=== PATIENT | female | born 1935 | race Hispanic/Latino ===

== ENCOUNTER 2017-08-09 14:57 | Outpatient (CLI) | payer MEDICARE ==
--- NOTE | 2017-08-09 15:30 | XRay Report ---
ROUTINE CHEST, TWO VIEWS: HISTORY: Cough. The trachea, heart, mediastinal contour, lung srivastava and bony thorax are unremarkable. IMPRESSION: Unremarkable chest x-ray.
== END 2017-08-09 14:58 | disposition home or self-care (01) ==
LOC: SPVIMAG 14:57
PROVIDERS: ATTEND Internal Medicine
DX: R05 Cough (principal)
CPT/HCPCS: 71046

== ENCOUNTER 2020-12-24 16:13 | Observation (INO) | payer MEDICARE ==
[2020-12-24] MEDS ORDERED: dilTIAZem 25 MG/5 ML INJ ONE (16:47)
[2020-12-24] MEDS ORDERED: ASPIRIN 325 MG TAB PO ONE (16:53)
[2020-12-24] MEDS ORDERED: dilTIAZem 25 MG/5 ML INJ IV ONE (16:56)
[2020-12-24] MEDS ORDERED: SODIUM CHLORIDE 0.9% 500 ML 500 ML IV ONE (16:59)
--- NOTE | 2020-12-24 16:59 | Emergency Department Report ---
ED Chest Pain HPI - General Chief Complaint: Chest Pain Stated Complaint: SYNCOPY/FALL PUI?: No Time Seen by Provider: 12/24/20 16:25 Source: patient, EMS Mode of arrival: Stretcher Limitations: No Limitations - History of Present Illness Initial Comments: Patient is an 85-year-old female that presents emergency room with complaints of chest pain, weakness and near syncope. Patient states she was at [facility] walking around feeling so weak that she needs to sit on the floor. Patient states that [facility] then called EMS. Patient states she never lost consciousness. Patient states she was close. Patient states that she had chest pain prior to the event but the chest pain has resolved. Patient states her chest pain was a 6 out of 10. Patient states she is not having any at this time. Patient denies shortness of breath. Patient states she has a history of A. fib. Patient patient brought into the ER by EMS. Report received from EMS. No medications were given in route. Patient was placed on oxygen. Patient is on 2 L of oxygen at this time. Patient denies recent travel. Patient denies recent international travel. Patient denies exposure to the novel coronavirus. Patient denies sick contacts. Patient denies fever and chills. Patient denies cough. Patient denies diarrhea. Patient denies coming in contact with anybody with symptoms of the novel coronavirus. MD Complaint: chest pain -: Sudden Onset: during exertion Pain Location: substernal, left chest Pain Radiation: none Severity scale (0 -10): 0 Consistency: now resolved Improves With: rest Worsens With: exertion re: denies: nausea, vomting, diaphoresis, dyspnea, sense of impending doom Other Symptoms: denies: cough, fever, syncope, rash, acid taste in mouth, leg swelling, palpitations, burping Aspirin use within the Past 7 Days: (1) Yes - Related Data On Oral Contraceptives: No Home Medications Medication Instructions Recorded Confirmed Last Taken RX: Calcium Carb & Citrate/Vit D3 600 mg PO DAILY 07/15/14 07/16/14 Unknown [Calcium + Vitamin D3 Caplet] RX: Cholecalciferol (Vitamin D3) 2,000 unit PO DAILY 07/15/14 07/16/14 Unknown [Vitamin D] RX: Fenofibrate [Lofibra] 160 mg PO QDAY 07/15/14 07/15/14 Unknown RX: Metoprolol [Lopressor TAB] 50 mg PO BID 07/15/14 07/15/14 Unknown RX: Rivaroxaban [Xarelto] 20 mg PO QDAY 07/15/14 07/15/14 Unknown RX: Simvastatin (Nf) [Zocor TAB] 20 mg PO QHS 07/15/14 07/15/14 Unknown RX: Turmeric Root Extract 500 mg PO DAILY 07/15/14 07/16/14 Unknown [Turmeric] RX: Vits A,C,E/Lutein/Minerals 1 each PO DAILY 07/15/14 07/16/14 Unknown [Ocuvite with Lutein Tablet] RX: diazePAM [Diazepam] 2.5 mg PO HS 07/15/14 07/15/14 Unknown RX: Tramadol HCl [traMADol] 50 mg PO Q8HR 07/16/14 07/16/14 Unknown Allergies Allergy/AdvReac Type Severity Reaction Status Date / Time Sulfa (Sulfonamide Allergy Itching Verified 07/15/14 15:43 Antibiotics) Heart Score - HEART Score History: Slightly suspicious EKG: Normal Age: > 65 Risk factors: > 3 risk factors or hx of atherosclerotic disease Troponin: < normal limit HEART Score: 4 - EKG Read Time Time EKG Completed: 17:44 EKG Read Time: 17:46 ED Review of Systems ROS: Stated complaint: SYNCOPY/FALL Other details as noted in HPI Constitutional: weakness. denies: chills, fever Eyes: denies: eye pain, eye discharge, vision change ENT: denies: ear pain, throat pain Respiratory: denies: cough, shortness of breath, wheezing Cardiovascular: denies: chest pain, palpitations Endocrine: no symptoms reported Gastrointestinal: denies: abdominal pain, nausea, diarrhea Genitourinary: denies: urgency, dysuria, discharge Musculoskeletal: denies: back pain, joint swelling, arthralgia Skin: denies: rash, lesions Neurological: as per HPI, weakness. denies: headache, paresthesias Psychiatric: denies: anxiety, depression Hematological/Lymphatic: denies: easy bleeding, easy bruising ED Past Medical Hx - Past Medical History Previous Medical History?: Yes Hx Hypertension: Yes Hx Heart Attack/AMI: Yes Hx Arthritis: Yes (on shoulder) Hx Psychiatric Treatment: (anxiety, insomnia) Hx HIV: No Additional medical history: high cholesterol, a fib - Surgical History Past Surgical History?: Yes Hx Appendectomy: Yes Additional Surgical History: colon resection, bladder tact - Family History Family history: no significant - Social History Smoking Status: Never Smoker Substance Use Type: None - Medications Home Medications: Home Medications Medication Instructions Recorded Confirmed Last Taken Type RX: Calcium Carb & Citrate/Vit D3 600 mg PO DAILY 07/15/14 07/16/14 Unknown History [Calcium + Vitamin D3 Caplet] RX: Cholecalciferol (Vitamin D3) 2,000 unit PO DAILY 07/15/14 07/16/14 Unknown History [Vitamin D] RX: Fenofibrate [Lofibra] 160 mg PO QDAY 07/15/14 07/15/14 Unknown History RX: Metoprolol [Lopressor TAB] 50 mg PO BID 07/15/14 07/15/14 Unknown History RX: Rivaroxaban [Xarelto] 20 mg PO QDAY 07/15/14 07/15/14 Unknown History RX: Simvastatin (Nf) [Zocor TAB] 20 mg PO QHS 07/15/14 07/15/14 Unknown History RX: Turmeric Root Extract 500 mg PO DAILY 07/15/14 07/16/14 Unknown History [Turmeric] RX: Vits A,C,E/Lutein/Minerals 1 each PO DAILY 07/15/14 07/16/14 Unknown History [Ocuvite with Lutein Tablet] RX: diazePAM [Diazepam] 2.5 mg PO HS 07/15/14 07/15/14 Unknown History RX: Tramadol HCl [traMADol] 50 mg PO Q8HR 07/16/14 07/16/14 Unknown History ED Physical Exam - General Limitations: No Limitations General appearance: alert, in no apparent distress - Head Head exam: Present: atraumatic, normocephalic - Eye Eye exam: Present: normal appearance - ENT ENT exam: Present: mucous membranes moist - Neck Neck exam: Present: normal inspection - Respiratory Respiratory exam: Present: normal lung sounds bilaterally. Absent: respiratory distress - Cardiovascular Cardiovascular Exam: Present: regular rate, normal rhythm, tachycardia, normal heart sounds. Absent: systolic murmur, diastolic murmur, rubs, gallop - GI/Abdominal GI/Abdominal exam: Present: soft, normal bowel sounds - Extremities Exam Extremities exam: Present: normal inspection - Back Exam Back exam: Present: normal inspection - Neurological Exam Neurological exam: Present: alert, oriented X3 - Psychiatric Psychiatric exam: Present: normal affect, normal mood - Skin Skin exam: Present: warm, dry, intact, normal color. Absent: rash ED Course Vital Signs 12/24/20 12/24/20 12/24/20 17:00 17:22 18:13 Temperature 100.8 F H Pulse Rate 140 H 124 H 100 H Respiratory 16 16 Rate Blood Pressure 114/68 118/72 Blood Pressure 118/68 106/64 [Left] O2 Sat by Pulse 98 98 Oximetry 12/24/20 12/24/20 12/24/20 18:16 18:30 18:46 Temperature Pulse Rate 107 H 101 H 100 H Respiratory 25 H 27 H 25 H Rate Blood Pressure 106/65 104/59 104/59 Blood Pressure [Left] O2 Sat by Pulse 96 96 95 Oximetry 12/24/20 12/24/20 12/24/20 19:00 19:16 19:30 Temperature Pulse Rate 113 H 107 H 104 H Respiratory 18 22 16 Rate Blood Pressure 97/50 97/50 105/59 Blood Pressure [Left] O2 Sat by Pulse 96 95 96 Oximetry 12/24/20 12/24/20 19:46 20:00 Temperature Pulse Rate 107 H 104 H Respiratory 21 19 Rate Blood Pressure 105/59 101/64 Blood Pressure [Left] O2 Sat by Pulse 94 95 Oximetry - Reevaluation(s) Reevaluation #1: Patient heart rate is improved. Patient is status post Cardizem 20 mg IV. Patient was placed on a Cardizem drip. We will continue to monitor blood pressure and vital signs. Patient will be given a 500 cc bolus of fluids. 12/24/20 16:46 0 Reevaluation #2: Patient states she is feeling better. Patient states that she does not feel weak anymore. Patient denies chest pain. Patient denies shortness of breath. Patient's heart rate is better. 12/24/20 17:04 Reevaluation #3: Patient states she is feeling fine. Vital signs are stable. 12/24/20 17:35 Reevaluation #4: I discussed all results with patient. I discussed plan of care with patient. Patient agrees with plan of care and admission. Patient to be admitted to the hospitalist service. 12/24/20 18:26 - Consultations Consultation #1: Hospitalist consulted for admission. Hospitalist to admit patient. 12/24/20 18:27 DAKOTAH score - Dakotah Score Age > 65: (1) Yes Aspirin use within the Past 7 Days: (1) Yes 3 or more CAD Risk Factors: (1) Yes 2 or more Angina events in past 24 hrs: (0) No Known CAD with more than 50% Stenosis: (0) No Elevated Cardiac Markers: (0) No ST Deviation Greater than 0.5mm: (0) No DAKOTAH Score: 3 ED Medical Decision Making - Lab Data Result diagrams: 12/24/20 17:09 12/24/20 17:09 - EKG Data -: EKG Interpreted by Me EKG shows normal: axis, intervals, QRS complexes, ST-T waves Rate: normal - EKG Data Interpretation: other (A. fib) - Radiology Data Radiology results: report reviewed, image reviewed interpreted by me: Chest x-ray: No pneumonia, no pneumothorax, no foreign body, no osseous findings, no acute findings CT head/brain wo con INDICATION / CLINICAL INFORMATION: 85 years Female; near syncope. weakness. TECHNIQUE: Routine CT head without contrast. All CT scans at this location are performed using CT dose reduction for ALARA by means of automated exposure control. COMPARISON: No priors currently available FINDINGS: BRAIN / INTRACRANIAL CONTENTS: No acute hemorrhage, mass effect, midline shift, hydrocephalus, or acute, large territorial infarct. Mild, diffuse cerebral and cerebellar atrophy. There are mild areas of decreased attenuation in the white matter of the cerebral hemispheres. These are nonspecific findings and may be related to microangiopathy (hypertension, diabetes, atherosclerosis), given the patient's age. CRANIOCERVICAL JUNCTION: No significant abnormality. ORBITS: No significant abnormality of visualized orbits. SINUSES / MASTOIDS: Prior sinus surgery and/or nasal septal perforation noted. Mild to moderate mucosal thickening in the ethmoids. There is also mild to moderate opacification of the mastoids on the right. ADDITIONAL FINDINGS: Atherosclerotic disease is seen in the anterior circulation. IMPRESSION: 1. No focal mass, hemorrhage, hydrocephalus, or acute, large territorial infarct. CHEST 1 VIEW 12/24/2020 5:38 PM INDICATION / CLINICAL INFORMATION: syncope. COMPARISON: 08/09/2017 FINDINGS: SUPPORT DEVICES: None. HEART / MEDIASTINUM: Small calcified lymph nodes in the left perihilar region. Mild aortic arch calcific atherosclerosis. No significant abnormality of the cardiac silhouette. LUNGS / PLEURA: No significant pulmonary or pleural abnormality. No pneumothorax. ADDITIONAL FINDINGS: Moderate bilateral shoulder degenerative changes. IMPRESSION: 1. No acute findings. - Medical Decision Making Patient is an 85-year-old female who presents emergency room with complaints of weakness and near syncope and chest pain. Patient never lost consciousness. Patient denied have any trauma and the patient states she felt weak and sat on the floor at [facility]. Patient brought in by EMS. Patient was found to be A. fib RVR no meds were given by EMS. Immediately after initial valuation, the patient was given 20 mg of IV Cardizem and the patient's heart rate improved. Patient was then placed on a Cardizem drip and patient's heart rate stabilized. Patient had an EKG done EKG shows no ST changes in A. fib. Patient's rate was controlled with Cardizem. Patient had labs done which were essentially unremarkable and patient's troponin was negative. Patient chest x-ray was negative for acute finding. I personally reviewed the EKG and the chest x-ray. Patient had a head CT to rule out intracranial process due to complaints of near syncope and the head CT was negative for acute findings. Critical care time documented due to the multiple reassessments, prolonged time at the bedside, interpretation of diagnostics and labs. - Differential Diagnosis A. fib RVR, near syncope, weakness,, fall, chest pain Critical Care Time: Yes Critical care time in (mins) excluding proc time.: 35 Critical care attestation.: If time is entered above; I have spent that time in minutes in the direct care of this critically ill patient, excluding procedure time. Critical Care Time: 35 minutes ED Disposition Clinical Impression: Atrial fibrillation with rapid ventricular response, Weakness, Near syncope Fall Qualifiers: Encounter type: initial encounter Qualified Code(s): W19.XXXA - Unspecified fall, initial encounter Chest pain Qualifiers: Chest pain type: unspecified Qualified Code(s): R07.9 - Chest pain, unspecified Disposition: 09 OP ADMIT IP TO THIS HOSP Is pt being admited?: Yes Does the pt Need Aspirin: No Condition: Critical Time of Disposition: 18:29
[2020-12-24] MEDS ORDERED: dilTIAZem/D5W 100 MG/100 ML BAG IV SCH (17:00)
[2020-12-24 17:20] LABS: Basophils % (Auto) 0.4 % (0.0-1.8); Eosinophils % (Auto) 0.6 % (0.0-4.3); Hematocrit 45.8 % (30.3-42.9); Hemoglobin 15.3 gm/dl (10.1-14.3); Lymphocytes # (Auto) 1.5 K/mm3 (1.2-5.4); Lymphocytes % (Auto) 17.2 % (13.4-35.0); Mean Corpuscular HGB Conc 34 % (30-34); Mean Corpuscular Volume 97 fl (79-97); Monocytes # (Auto) 1.1 K/mm3 (0.0-0.8); Monocytes % (Auto) 12.3 % (0.0-7.3); Platelet Count 123 K/mm3 (140-440); Red Blood Count 4.73 M/mm3 (3.65-5.03)
[2020-12-24 17:55] LABS: Alanine Aminotransferase 12 units/L (7-56); Albumin 4.1 g/dL (3.9-5); BUN/Creatinine Ratio 19; Blood Urea Nitrogen 15 mg/dL (7-17); Calcium 9.1 mg/dL (8.4-10.2); Hemolysis Index 31
--- NOTE | 2020-12-24 17:55 | Cat Scan Report ---
CT head/brain wo con INDICATION / CLINICAL INFORMATION: 85 years Female; near syncope. weakness. TECHNIQUE: Routine CT head without contrast. All CT scans at this location are performed using CT dos e reduction for ALARA by means of automated exposure control. COMPARISON: No priors currently available FINDINGS: BRAIN / INTRACRANIAL CONTENTS: No acute hemorrhage, mass effect, midline shift, hydrocephalus, or acu te, large territorial infarct. Mild, diffuse cerebral and cerebellar atrophy. There are mild areas of decreased attenuation in the white matter of the cerebral hemispheres. These are nonspecific findings and may be related to microangiopathy (hypertension, diabetes, atheroscleros is), given the patient's age. CRANIOCERVICAL JUNCTION: No significant abnormality. ORBITS: No significant abnormality of visualized orbits. SINUSES / MASTOIDS: Prior sinus surgery and/or nasal septal perforation noted. Mild to moderate mucos al thickening in the ethmoids. There is also mild to moderate opacification of the mastoids on the ri ght. ADDITIONAL FINDINGS: Atherosclerotic disease is seen in the anterior circulation. IMPRESSION: 1. No focal mass, hemorrhage, hydrocephalus, or acute, large territorial infarct. Signer Name: Omar Henley MD, III Signed: 12/24/2020 5:51 PM Workstation Name: [id number]
--- NOTE | 2020-12-24 18:06 | XRay Report ---
CHEST 1 VIEW 12/24/2020 5:38 PM INDICATION / CLINICAL INFORMATION: syncope. COMPARISON: 08/09/2017 FINDINGS: SUPPORT DEVICES: None. HEART / MEDIASTINUM: Small calcified lymph nodes in the left perihilar region. Mild aortic arch calci fic atherosclerosis. No significant abnormality of the cardiac silhouette. LUNGS / PLEURA: No significant pulmonary or pleural abnormality. No pneumothorax. ADDITIONAL FINDINGS: Moderate bilateral shoulder degenerative changes. IMPRESSION: 1. No acute findings. Signer Name: Brady Harman MD Signed: 12/24/2020 6:01 PM Workstation Name: [id number]
--- NOTE | 2020-12-24 18:31 | History and Physical Report ---
History of Present Illness Chief complaint: I started feeling weak History of present illness: 85 YO Female with HTN, HLD, Obesity Hypoventilation Syndrome, [place], Atrial Fib on therapeutic anticoagulation with Xarelto, OA, DEBBY presents to ED for evaluation. Patient reports "I started feeling weak in [facility]". Patient states that she was in her usual state of health and went shopping with her grandson to [facility]. Patient states that while ambulating around the store she began feeling weak with a rapid heartbeat. Patient states that she sat on the floor with improvement in symptoms. EMS was notified and upon arrival the patient was found to be in distress and subsequently transported to [facility] for further care and evaluation of the aforementioned symptoms. The patient was seen and evaluated in the emergency department. All lab and imaging studies reviewed. Patient denies chest pain at the time my evaluation and analysis chest palpitations. Patient found to have a atrial fibrillation with rapid ventricular response. Patient treated with Cardizem loading dose and initiation of Cardizem drip with normalization of heart rate. Patient transition to oral Cardizem and placed in observation status and admitted to telemetry. Patient acknowledges chest palpitations. Patient denies fever, chills chest pain, productive cough, skin rash, recent ill contacts, or known exposure to COVID-19. No prior admission for review. All medication listed at time of admission has been reconciled. Advanced care planning conducted in ED. Cardiology team consulted in ED. Past History Past Medical History: acute [place], atrial fib, hypertension, other (See HPI) Past Surgical History: appendectomy, bowel surgery Social history: . denies: smoking, alcohol abuse, prescription drug abuse Family history: hypertension Medications and Allergies Allergies Allergy/AdvReac Type Severity Reaction Status Date / Time Sulfa (Sulfonamide Allergy Itching Verified 07/15/14 15:43 Antibiotics) Home Medications Medication Instructions Recorded Confirmed Last Taken Type Calcium Carb & Citrate/Vit D3 600 mg PO DAILY 07/15/14 07/16/14 Unknown History [Calcium + Vitamin D3 Caplet] Cholecalciferol (Vitamin D3) 2,000 unit PO DAILY 07/15/14 07/16/14 Unknown History [Vitamin D] Fenofibrate [Lofibra] 160 mg PO QDAY 07/15/14 07/15/14 Unknown History Metoprolol [Lopressor TAB] 50 mg PO BID 07/15/14 07/15/14 Unknown History Rivaroxaban [Xarelto] 20 mg PO QDAY 07/15/14 07/15/14 Unknown History Simvastatin (Nf) [Zocor TAB] 20 mg PO QHS 07/15/14 07/15/14 Unknown History Turmeric Root Extract [Turmeric] 500 mg PO DAILY 07/15/14 07/16/14 Unknown History Vits A,C,E/Lutein/Minerals 1 each PO DAILY 07/15/14 07/16/14 Unknown History [Ocuvite with Lutein Tablet] diazePAM [Diazepam] 2.5 mg PO HS 07/15/14 07/15/14 Unknown History Tramadol HCl [traMADol] 50 mg PO Q8HR 07/16/14 07/16/14 Unknown History Active Meds: Active Medications Diltiazem HCl (Cardizem/D5w 100mg/100ml) 100 mg in 100 mls @ 5 mls/hr IV TITR RAUDEL; Protocol Last Admin: 12/24/20 17:22 Dose: 5 mg/hr, 5 mls/hr Documented by: Review of Systems Constitutional: weakness, no weight loss, no weight gain, no fever, no chills Ears, nose, mouth and throat: no ear discharge, no decreased hearing, no nose pain, no nasal discharge, no sinus pressure Breasts: no change in shape, no mass Cardiovascular: palpitations, decreased exercise tolerance, no syncope, no lightheadedness, no shortness of breath Respiratory: no cough, no excessive sputum, no shortness of breath Gastrointestinal: no abdominal pain, no nausea, no vomiting, no diarrhea, no constipation, no change in bowel habits Genitourinary Female: no pelvic pain, no flank pain, no dysuria, no urinary frequency, no urgency Rectal: no pain, no incontinence, no bleeding Musculoskeletal: no neck stiffness, no neck pain, no shooting arm pain, no arm numbness/tingling, no low back pain, no shooting leg pain Integumentary: no rash, no pruritis, no redness, no sores, no wounds Neurological: no head injury, no transient paralysis, no paralysis, no weakness, no numbness, no tingling, no syncope Psychiatric: no anxiety, no sleep disturbances, no insomnia, no hypersomnia, no change in appetite, no suicidal ideation, no disorientation Endocrine: no cold intolerance, no heat intolerance, no polyphagia, no excessive thirst, no polyuria, no flushing Hematologic/Lymphatic: no easy bruising, no easy bleeding, no lymphadenopathy Allergic/Immunologic: no urticaria, no allergic rhinitis, no wheezing, no persistent infections, no anaphylaxis Exam - Constitutional Vitals: Temp Pulse Resp BP Pulse Ox 100.8 F H 100 H 16 106/64 98 12/24/20 18:13 12/24/20 18:13 12/24/20 18:13 12/24/20 18:13 12/24/20 18:13 General appearance: Present: mild distress - EENT Eyes: Present: PERRL ENT: hearing intact, clear oral mucosa - Neck Neck: Present: supple, normal ROM - Respiratory Respiratory effort: normal Respiratory: bilateral: CTA - Cardiovascular Rhythm: irregularly irregular Heart Sounds: Present: S1 & S2. Absent: rub, click - Extremities Extremities: pulses symmetrical, No edema Peripheral Pulses: within normal limits - Abdominal General gastrointestinal: Present: soft, non-tender, non-distended, normal bowel sounds Female genitourinary: Present: normal - Integumentary Integumentary: Present: clear, warm, dry - Musculoskeletal Musculoskeletal: gait normal, strength equal bilaterally - Psychiatric Psychiatric: appropriate mood/affect, intact judgment & insight - Neurologic Neurologic: CNII-XII intact, moves all extremities HEART Score - HEART Score EKG: Normal Age: > 65 Risk factors: > 3 risk factors or hx of atherosclerotic disease Troponin: Troponin T < 0.010 ng/mL (0.00-0.029) 12/24/20 17:09 Troponin: < normal limit Results - Labs CBC & Chem 7: 12/24/20 17:09 12/24/20 17:09 Labs: Abnormal lab results 12/24/20 12/24/20 Range/Units 17:09 17:09 Hgb 15.3 H (10.1-14.3) gm/dl Hct 45.8 H (30.3-42.9) % Plt Count 123 L (140-440) K/mm3 Garfield % (Auto) 12.3 H (0.0-7.3) % Garfield # (Auto) 1.1 H (0.0-0.8) K/mm3 Sodium 134 L (137-145) mmol/L Chloride 97.4 L (98-107) mmol/L Glucose 110 H (65-100) mg/dL Assessment and Plan - Patient Problems (1) Atrial fibrillation with rapid ventricular response Status: Acute Plan to address problem: Cardizem drip, patient transition to oral Cardizem, hold beta-fabiola therapy for now, cardiology team consulted, telemetry monitoring, continue therapeutic anticoagulation. (2) Hypertension Status: Acute Qualifiers: Hypertension type: essential hypertension Qualified Code(s): I10 - Essential (primary) hypertension Plan to address problem: Monitor blood pressure every shift, continue medical management. (3) Hyperlipidemia Status: Acute Qualifiers: Hyperlipidemia type: mixed hyperlipidemia Qualified Code(s): E78.2 - Mixed hyperlipidemia Plan to address problem: Low-cholesterol diet, supportive care, continue medical management. (4) Generalized anxiety disorder Status: Acute Plan to address problem: Benzodiazepine therapy as clinically indicated, neuro check, supportive care. (5) DVT prophylaxis Status: Acute Plan to address problem: SCD to bilateral lower extremities while in bed, continue therapeutic anticoagulation (6) Advance care planning Status: Acute Plan to address problem: Disease education conducted, care plan discussed, diagnosis discussed, prognosis discussed, patient is full code. Patient knowledges understanding and agreement with care plan, +30 minutes.
[2020-12-24] MEDS ORDERED: ONDANSETRON 4 MG/2 ML INJ IV PRN (19:07)
[2020-12-24] MEDS ORDERED: ALBUTEROL 2.5 MG/3 ML NEBU IH PRN (19:07)
[2020-12-24] MEDS ORDERED: ACETAMINOPHEN 325 MG TAB PO PRN (19:07)
[2020-12-24] MEDS: dilTIAZem 30 MG TAB PO SCH (20:25)
[2020-12-24] MEDS ORDERED: diazePAM 5 MG TAB PO SCH (22:00)
[2020-12-24] MEDS ORDERED: PRAVASTATIN 40 MG TAB PO SCH (22:00)
[2020-12-24] MEDS ORDERED: NON-FORMULARY EACH (Simvastatin (Nf) 20 MG Tablet) PO SCH (22:00)
[2020-12-24] MEDS: traMADol 50 MG TAB PO SCH (22:41)
[2020-12-25] MEDS: dilTIAZem 30 MG TAB PO SCH ×3 (00:46→15:03)
[2020-12-25 03:40] VITALS: BP 106/60
[2020-12-25] MEDS: traMADol 50 MG TAB PO SCH ×2 (05:30→15:03)
[2020-12-25 06:12] LABS: Blood Urea Nitrogen 13 mg/dL (7-17); Calcium 8.7 mg/dL (8.4-10.2); Hemolysis Index 8
[2020-12-25 06:16] LABS: BUN/Creatinine Ratio 19
[2020-12-25] MEDS ORDERED: RIVAROXABAN 20 MG TAB PO SCH (08:00)
[2020-12-25] MEDS ORDERED: CALCIUM CARBONATE/VITAMIN D3 500 MG-200 UNIT TAB PO SCH (10:00)
[2020-12-25] MEDS ORDERED: LUTEIN PO SCH (10:00)
[2020-12-25] MEDS ORDERED: FENOFIBRATE 160 MG PO SCH (10:00)
[2020-12-25] MEDS ORDERED: VITS A C E PO SCH (10:00)
[2020-12-25] MEDS ORDERED: NON-FORMULARY EACH (Rivaroxaban 20 MG Tablet) PO SCH (10:00)
[2020-12-25] MEDS ORDERED: [UNRECOGNIZED DRUG - OTHER] PO SCH (10:00)
[2020-12-25] MEDS ORDERED: TURMERIC ROOT EXTRACT 500 MG PO SCH (10:00)
[2020-12-25] MEDS ORDERED: FENOFIBRATE 145 MG TAB PO SCH (10:00)
[2020-12-25] MEDS ORDERED: CALCIUM CARB PO SCH (10:00)
[2020-12-25] MEDS ORDERED: [UNRECOGNIZED DRUG - OTHER] PO SCH (10:00)
[2020-12-25] MEDS ORDERED: CHOLECALCIFEROL (VIT D3) 1000 UNIT (25 mcg) TAB PO SCH (10:00)
[2020-12-25] MEDS ORDERED: VIT D3 PO SCH (10:00)
[2020-12-25] MEDS ORDERED: MULTIVITAMINS,THER W-MINERALS TAB PO SCH (10:00)
[2020-12-25] MEDS ORDERED: CITRATE PO SCH (10:00)
[2020-12-25] MEDS ORDERED: CHOLECALCIFEROL 1000 UNIT PO SCH (10:00)
[2020-12-25] MEDS ORDERED: MINERALS PO SCH (10:00)
--- NOTE | 2020-12-25 15:03 | Progress Note ---
Subjective Date of service: 12/25/20 Objective - Constitutional Vitals: Vital Signs - 12hr 12/25/20 12/25/20 12/25/20 03:32 05:28 09:49 Temperature 97.7 F Pulse Rate 89 89 Respiratory 18 Rate Blood Pressure 106/60 106/60 O2 Sat by Pulse 93 95 Oximetry 12/25/20 10:00 Temperature Pulse Rate 93 H Respiratory Rate Blood Pressure O2 Sat by Pulse Oximetry - Labs CBC & Chem 7: 12/24/20 17:09 12/25/20 04:40 Labs: Abnormal lab results 12/24/20 12/24/20 Range/Units 17:09 17:09 Hgb 15.3 H (10.1-14.3) gm/dl Hct 45.8 H (30.3-42.9) % Plt Count 123 L (140-440) K/mm3 Leon % (Auto) 12.3 H (0.0-7.3) % Leon # (Auto) 1.1 H (0.0-0.8) K/mm3 Sodium 134 L (137-145) mmol/L Chloride 97.4 L (98-107) mmol/L Glucose 110 H (65-100) mg/dL HEART Score - HEART Score EKG: Normal Age: > 65 Risk factors: > 3 risk factors or hx of atherosclerotic disease Troponin: Troponin T < 0.010 ng/mL (0.00-0.029) 12/24/20 23:19 Troponin: < normal limit
--- NOTE | 2020-12-25 15:05 | Discharge Summary ---
Providers - Providers Date of Admission: 12/24/20 19:07 Date of discharge: 12/25/20 Attending physician: GORDO RAY 12/24/20 19:07 Consult to Physician [CONS] Routine Comment: Consulting Provider: DARIUS MATA Physician Instructions: Reason For Exam: atrial fib Primary care physician: SUPERVISING [employer]PUTY Hospitalization Condition: Critical Hospital course: 85 YO Female with HTN, HLD, Obesity Hypoventilation Syndrome, [place], Atrial Fib on therapeutic anticoagulation with Xarelto, OA, DEBBY presents to ED for evaluation. Patient reports "I started feeling weak in [facility]". Patient states that she was in her usual state of health and went shopping with her grandson to [facility]. Patient states that while ambulating around the store she began feeling weak with a rapid heartbeat. Patient states that she sat on the floor with improvement in symptoms. EMS was notified and upon arrival the patient was found to be in distress and subsequently transported to [facility] for further care and evaluation of the aforementioned symptoms. The patient was seen and evaluated in the emergency department. All lab and imaging studies reviewed. Patient denies chest pain at the time my evaluation and analysis chest palpitations. Patient found to have a atrial fibrillation with rapid ventricular response. Patient treated with Cardizem loading dose and initiation of Cardizem drip with normalization of heart rate. Patient transition to oral Cardizem and placed in observation status and admitted to telemetry. Patient acknowledges chest palpit ations. Patient denies fever, chills chest pain, productive cough, skin rash, recent ill contacts, or known exposure to COVID-19. No prior admission for review. All medication listed at time of admission has been reconciled. Advanced care planning conducted in ED. Cardiology team consulted in ED. 12/25/2020 Heart rate improved to mid 80s In A. fib Assessment and Plan (1) Atrial fibrillation with rapid ventricular response Status: Acute Plan to address problem: Cardizem drip, patient transition to oral Cardizem, hold beta-fabiola therapy for now, cardiology team consulted, telemetry monitoring, continue therapeutic anticoagulation. (2) Hypertension Status: Acute Qualifiers: Hypertension type: essential hypertension Qualified Code(s): I10 - Essential (primary) hypertension Plan to address problem: Monitor blood pressure every shift, continue medical management. (3) Hyperlipidemia Status: Acute Qualifiers: Hyperlipidemia type: mixed hyperlipidemia Qualified Code(s): E78.2 - Mixed hyperlipidemia Plan to address problem: Low-cholesterol diet, supportive care, continue medical management. (4) Generalized anxiety disorder Status: Acute Plan to address problem: Benzodiazepine therapy as clinically indicated, neuro check, supportive care. Disposition: DC-01 TO HOME OR SELFCARE Final Discharge Diagnosis (Prints w/discharge instructions): A. fib with rapid ventricular response. Hypertension. Hyperlipidemia. Generalized anxiety disorder Time spent for discharge: 32 minutes - Discharge Diagnoses (1) Generalized anxiety disorder Status: Acute (2) Hyperlipidemia Status: Acute Qualifiers: Hyperlipidemia type: mixed hyperlipidemia Qualified Code(s): E78.2 - Mixed hyperlipidemia (3) Hypertension Status: Acute Qualifiers: Hypertension type: essential hypertension Qualified Code(s): I10 - Essential (primary) hypertension (4) Atrial fibrillation with rapid ventricular response Status: Acute (5) DVT prophylaxis Status: Acute Core Measure Documentation - Palliative Care Palliative Care/ Comfort Measures: Not Applicable - Core Measures Any of the following diagnoses?: none Exam - Constitutional Vitals: Temp Pulse Resp BP Pulse Ox 97.7 F 93 H 18 106/60 95 12/25/20 03:32 12/25/20 10:00 12/25/20 03:32 12/25/20 05:28 12/25/20 09:49 General appearance: Present: no acute distress, well-nourished - EENT Eyes: Present: PERRL ENT: hearing intact, clear oral mucosa - Neck Neck: Present: supple, normal ROM - Respiratory Respiratory effort: normal Respiratory: bilateral: CTA - Cardiovascular Heart rate: 86 Rhythm: irregularly irregular Heart Sounds: Present: S1 & S2. Absent: rub, click - Extremities Extremities: pulses symmetrical, No edema Peripheral Pulses: within normal limits - Abdominal General gastrointestinal: Present: soft, non-tender, non-distended, normal bowel sounds Female genitourinary: Present: normal - Rectal Rectal Exam: deferred - Integumentary Integumentary: Present: clear, warm, dry - Musculoskeletal Musculoskeletal: gait normal, strength equal bilaterally - Psychiatric Psychiatric: appropriate mood/affect, intact judgment & insight - Neurologic Neurologic: CNII-XII intact, moves all extremities - Allied Health Allied health notes reviewed: nursing, case management Plan Activity: no restrictions Diet: low salt Follow up with: PRIMARY CAREMD [Primary Care Provider] - 7 Days JUDIE REDDY MD [Staff Physician] - 7 Days
[2020-12-25] MEDS ORDERED: dilTIAZem 30 MG TAB PO SCH ×2 (20:00)
--- NOTE | 2020-12-30 12:38 | Electrocardiograph Report ---
[facility] Test Date: 2020-12-24 Test Time: 17:44:18 Pat Name: ERICH NÚÑEZ Department: Room: A473 1 Gender: F Key Operator: AMADOR : 1935 Requested By: RADHA HERNANDEZ III Order Number: [id number] Reading MD: Yolette Culp Measurements Intervals [place] Rate: 97 P: MD: QRS: 58 QRSD: 91 T: -16 QT: 345 QTc: 447 Interpretive Statements Atrial fibrillation No previous ECG available for comparison Electronically Signed On 12-30-2020 12:38:04 EDT by Yolette Culp
== END 2020-12-25 17:26 | disposition home or self-care (01) ==
LOC: ED 16:13 → 4A 19:07
PROVIDERS: ADMIT Internal Medicine; ATTEND Internal Medicine
DX: I48.20 Chronic atrial fibrillation, unspecified (principal); I10 Essential (primary) hypertension; E78.5 Hyperlipidemia, unspecified; F41.9 Anxiety disorder, unspecified; R55 Syncope and collapse; R53.1 Weakness; I25.2 Old myocardial infarction; E66.9 Obesity, unspecified; E78.00 Pure hypercholesterolemia, unspecified; M19.90 Unspecified osteoarthritis, unspecified site; Z90.49 Acquired absence of other specified parts of digestive tract; Z79.899 Other long term (current) drug therapy; Z98.890 Other specified postprocedural states; Z68.24 Body mass index [BMI] 24.0-24.9, adult
CPT/HCPCS: 36415; 70450; 71045; 80048; 80053; 84484; 85025; 93005; 96365; 96366; 96376; 99291; A9270; G0378